=== PATIENT | male | born 1955 | race Caucasian/White ===

== ENCOUNTER → 2023-11-02 10:55 | Outpatient (REF) | payer OTHER, SELFPAY | LOC: MRI 3T 10:55 | PROVIDERS: ATTENDING PHYSICIAN Physician Assistant | DX: R97.21 Rising PSA following treatment for malignant neoplasm of prostate (principal); R39.198 Other difficulties with micturition; R39.11 Hesitancy of micturition | CPT/HCPCS: 72197; A9575 ==

== ENCOUNTER 2024-04-19 09:29 | Emergency (ER) | payer OTHER, SELFPAY ==
[2024-04-19 09:36] VITALS: BP 161/97
[2024-04-19 09:46] VITALS: BMI 25.1
--- NOTE | 2024-04-19 09:58 | ED.GENMED ---
History of Present Illness
General
Chief Complaint: Headache
Time Seen by Provider: 04/19/24 09:32
History of Present Illness
History of Present Illness:
Patient is a 68-year-old [facility] who is currently there after a fall that resulted in the left hemispheric subarachnoid subdural hemorrhage up to 6 mm in thickness, finger fracture, pelvis fracture status post ORIF presenting to the
emergency department with headache. Per chart review it appears that patient has been having headaches frequently at rehab. It appears that has been more postconcussive in nature and they have been trying to limit triggers. He states that the
headache is usually frontal. Is associated with therapy as he does require a lot of focus during it. He also states that he will get occasional dizziness especially with movement. This morning he is coming to the emergency department as he had a
headache and then vomited his morning pills. He states that he did not have a headache at the time of the emesis. He denies any dizziness this morning. He states that the headache has since resolved. It was frontal in nature. Very similar to
the other headaches he has been having. is at bedside who states that they did recommend CT scan yesterday however they opted out of it at that time.
Past History
Past History
ED Past Medical History: HTN, Hypercholesterolemia, Other (COVID-19 pneumonia in December 2019) and Other (erectile dysfunction, elevated glucose levels)
ED Past Surgical History: Orthopedic (right carpal tunnel surgery) and Other (hemorrhoidectomy)
Social History
Tobacco: Non-smoker
Alcohol: None
Drug: None
Personal:
Living: with family
Employment: Retired
Family History
Family History: Other (brother with multiple myeloma)
Phy Exam
Physical Exam
Physical Exam:
GENERAL: in no acute distress
HEENT: normocephalic, extraocular movements intact, moist oral mucosa
NECK: normal inspection
RESPIRATORY: no respiratory distress, clear to auscultation bilaterally
CARDIOVASCULAR: regular rate and rhythm
ABDOMEN/: soft, non-distended, non-tender to palpation, no rebound or guarding
EXTREMITIES: non-tender, no edema/swelling
NEUROLOGIC: awake and alert, moves all extremities, equal strength in upper and lower extremities, normal sensation
SKIN: warm
Course
Orders/Labs/Results
Orders:
Orders
04/19/24 09:57
CT Head W/o Iv Contrast Urgent
Comment:
Reason For Exam: headache, hx SDH/SAH
04/19/24 10:01
Complete Blood Count/With Diff Urgent
04/19/24 12:00
Oxycodone [Roxicodone] 5 mg PO NOW STA
Abnormal Lab Results
04/19/24
10:01
RBC 4.32 L 10^6/uL
(4.70-6.10)
Hgb 12.9 L g/dL
(13.0-18.0)
Hct 36.2 L %
(39.0-52.0)
Abs Immat Gran (auto) 0.1 H 10^3/uL
(0-0.05)
Absolute Lymphs (auto) 1.0 L 10^3/uL
(1.2-3.4)
Absolute Monos (auto) 0.9 H 10^3/uL
(0.1-0.6)
Immature Gran % 0.6 H %
(0-0.5)
Neutrophils % 76.4 H %
(42.2-75.2)
Lymphocytes % 11.6 L %
(20.5-51.1)
Monocytes % 10.6 H %
(1.7-9.3)
04/19/24 10:01
04/19/24 09:56
Vital Signs
Initial and Last Documented VS:
Initial Vital Signs
Temp Pulse Resp BP Pulse Ox
98.1 F 82 18 161/97 99
04/19/24 09:36 04/19/24 09:36 04/19/24 09:36 04/19/24 09:36 04/19/24 09:36
Last Documented Vital Signs
Temp Pulse Resp BP Pulse Ox
98.1 F 84 18 130/72 99
04/19/24 09:36 04/19/24 11:00 04/19/24 11:00 04/19/24 11:00 04/19/24 11:00
MDM/Problems Addressed
Differential Diagnosis Includes:
Patient is a 68-year-old man from rehab presenting to the emergency department with a headache that has resolved. Vitals unremarkable and exam is reassuring. Differential consists of worsening bleed versus metabolic derangement versus
postconcussive syndrome. He did have a BMP this morning that showed a sodium of 126. 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 He is on a fluid restriction as well as salt tablets. Will
discuss with nephrology here to see if there is any other recommendations given the abrupt change from yesterday to today. Wells obtain CT scan of the head to evaluate for any changes of the hemorrhages. At this time given the patient has no
headache we will hold off on any medications.
*Critical Care Note
Total Time (30-74mins, 75-104mins- exclusive of procedures): Not Applicable
Update Note
Update Note:
CT scan of the head per my interpretation with no obvious hemorrhage. Per the distal read no acute changes. Patient states that he feels much better. However he is having his recurrent pelvic pain. He normally gets oxycodone for it. He does
state that he vomited the dose this morning. Patient has been able to tolerate p.o. Will give oxycodone. I did discuss with nephrology who will evaluate patient when he is back at rehab regarding the hyponatremia. Will discharge patient back to
rehab
ED Attending Note
-
Portions of this chart may have been created with voice recognition software.� Occasional wrong word or��sound alike� substitutions may have occurred due to the inherent limitations of voice recognition software.
Discharge Plan
Departure
Patient Disposition: Home (Routine Discharge)
Date of Disposition: 04/19/24
Time of Disposition: 12:00
Patient with high blood pressure during this ER visit?: No
Discharge Problem:
Headache
Prescriptions:
No Action
methocarbamol [Robaxin] 500 mg Tablet
500 mg PO Q6H PRN (Reason: FOR MUCSLE SPASMS)
acetaminophen 325 mg Tablet
975 mg PO Q8H
levetiracetam 500 mg Tablet
500 mg PO BID
sennosides-docusate sodium [Senokot-S] 8.6-50 mg Tablet
2 tab-cap PO HS
methylprednisolone 4 mg Tablet
4 mg PO DAILY
Rx Instructions:
take 2 tablets PO daily for 1 day, then 1 tab daily for 1 day. do not start before April
melatonin 3 mg Tablet
3 mg PO HS
tamsulosin [Flomax] 0.4 mg Capsule
0.4 mg PO HS
enoxaparin [Lovenox] 30 mg/0.3 mL Syringe
30 mg SC Q12H
sodium chloride 1,000 mg Tablet,Soluble
1,000 mg PO TID
Rx Instructions:
take 1tab by mouth TID with meals
oxycodone 5 mg Tablet
5 mg PO Q4H PRN (Reason: severe pain)
Referrals:
Becka Liu PA [Family Provider] -
Interventions
Interventions:
*Risk Screen - Suicide Last Done: 04/19/24 09:37
*General Assessment Last Done: 04/19/24 09:37
*Neglect/Abuse Screening Last Done: 04/19/24 09:37
*ED- Fall Risk Assessment Last Done: 04/19/24 09:46
*ED COVID-19 Vaccine History Last Done: 04/19/24 09:46
ED- Neurological Assessment Last Done: 04/19/24 09:38
Discharge Date and Time
Print Language: KHMER
[2024-04-19 11:00] VITALS: BP 130/72
[2024-04-19 11:29] LABS: % Basophils 0.2 % (0-2); % Eosinophils 0.6 % (0-6); % Immature Granulocytes 0.6 % (0-0.5); % Lymphocytes 11.6 % (20.5-51.1); % Monocytes 10.6 % (1.7-9.3); % Neutrophils 76.4 % (42.2-75.2); Absolute Eosinophils 0.1 10^3/uL (0-0.7); Absolute Immature Granulocytes 0.1 10^3/uL (0-0.05); Absolute Monocytes 0.9 10^3/uL (0.1-0.6); Absolute Neutrophils 6.4 10^3/uL (1.4-6.5); Hematocrit 36.2 % (39.0-52.0); Hemoglobin 12.9 g/dL (13.0-18.0); Mean Corp Hgb Conc. 35.6 g/dL (33.0-37.0); Mean Corpuscular Hgb 29.9 pg (27.0-31.0); Mean Corpuscular Volume 83.8 fL (80.0-94.0); Mean Platelet Volume 9.6 fL (7.4-10.4); Nucleated Red Blood Cells % 0 % (-); Platelet Count 382 10^3/uL (130-400); Red Blood Cell Count 4.32 10^6/uL (4.70-6.10); Red Cell Dist. Width 13.8 % (11.5-14.5); White Blood Cell Count 8.4 10^3/uL (4.8-10.8)
[2024-04-19 11:32] VITALS: BP 151/85
[2024-04-19 12:00] VITALS: BP 146/89
[2024-04-19] MEDS: ROXICODONE 5 MG PO (12:14)
== END 2024-04-19 12:23 | disposition home or self-care (01) ==
LOC: EMR 09:29
PROVIDERS: EMERGENCY PHYSICIAN Student in an Organized Health Care Education/Training Program; FAMILY PHYSICIAN Physician Assistant
DX: R51.9 Headache, unspecified (principal); I10 Essential (primary) hypertension; E78.00 Pure hypercholesterolemia, unspecified; N52.9 Male erectile dysfunction, unspecified; Z86.16 Personal history of COVID-19; Z86.79 Personal history of other diseases of the circulatory system
CPT/HCPCS: 99284; 70450; 85025

== ENCOUNTER → 2024-07-24 16:19 | Outpatient (REF) | payer OTHER, SELFPAY | LOC: RCS 16:19 | PROVIDERS: ATTENDING PHYSICIAN Physician Assistant | DX: Z01.818 Encounter for other preprocedural examination (principal); G56.21 Lesion of ulnar nerve, right upper limb | CPT/HCPCS: 93005 ==

== ENCOUNTER → 2024-09-02 10:18 | Outpatient (REF) | payer OTHER, SELFPAY | LOC: RAD 10:18 | PROVIDERS: ATTENDING PHYSICIAN Family Medicine | DX: R05.3 Chronic cough (principal) | CPT/HCPCS: 71046 ==

== ENCOUNTER → 2024-09-10 08:20 | Outpatient (REF) | payer OTHER, SELFPAY | LOC: RAD 08:20 | PROVIDERS: ATTENDING PHYSICIAN Family Medicine | DX: R93.89 Abnormal findings on diagnostic imaging of other specified body structures (principal) | CPT/HCPCS: 71046 ==